=== PATIENT | female | born 1985 | race Caucasian/White ===

== ENCOUNTER 2022-09-30 10:23 | Day surgery (SDC) | payer BC ==
[2022-09-30] MEDS ORDERED: Iron Sucrose Complex 500 MG in Sodium Chloride 0.9% 250 ML 250 ML IVPB SCH (10:45)
[2022-09-30] MEDS ORDERED: Acetaminophen 500 MG TAB PO SCH (10:45)
[2022-09-30] MEDS ORDERED: Acetaminophen 500 MG TAB ONE (10:45)
== END 2022-09-30 15:25 | disposition home or self-care (01) ==
LOC: CSHSDC/OP 10:23
PROVIDERS: ATTEND Family Medicine
DX: O99.019 Anemia complicating pregnancy, unspecified trimester (principal); D64.9 Anemia, unspecified; Z3A.00 Weeks of gestation of pregnancy not specified
CPT/HCPCS: J1756; J7050

== ENCOUNTER 2022-10-24 14:33 | Day surgery (SDC) | payer BC ==
[2022-10-24 15:18] VITALS: BMI 60.3
[2022-10-24] MEDS ORDERED: hydrALAZINE 20 MG/ML VIAL SLOW IVP PRN (16:10)
[2022-10-24 17:18] LABS: ALT (SGPT) 15 U/L (8-55); AST (SGOT) 12 U/L (5-34); Albumin 3.4 g/dL (3.5-5.0); Alkaline Phosphatase 107 U/L (40-110); Anion Gap 17 mmol/L (10-20); BUN (Urea Nitrogen) 10 mg/dL (7.0-18.7); Bilirubin, Total Less than 0.2 mg/dL (0.2-1.2); Calc. Creatinine Clearance 328 mL/min (70-130); Calcium 8.8 mg/dL (7.8-10.44); Carbon Dioxide 18 mmol/L (22-29); Chloride 106 mmol/L (98-107); Estimated GFR 121; Globulin 2.9 g/dL (2.4-3.5); Glucose 107 mg/dL (70-105); Potassium 4.2 mmol/L (3.5-5.1); Protein, Total 6.3 g/dL (6.0-8.3); Sodium 137 mmol/L (136-145)
[2022-10-24] MEDS ORDERED: HumaLOG 300 UNITS/3 ML VIAL SC SCH (17:45)
[2022-10-24 17:52] LABS: #Eosinphils 0.3 10x3/uL (0.0-0.5); #Monocytes 0.6 10x3/uL (0.0-1.1); #Neutrophils 8.2 10x3/uL (1.5-8.4); %Basophils 0.3 % (0.0-2.0); %Eosinophils 2.5 % (0.0-6.0); %Lymphocytes 14.8 % (18.0-47.0); %Monocytes 5.9 % (0.0-10.0); %Neutrophils 75.3 % (40.0-75.0); Hemoglobin 10.8 g/dL (12.0-15.5); Mean Corpuscular HGB CONC 32.6 g/dL (32.0-36.0); Mean Corpuscular Hemoglobin 28.1 pg (27.0-33.0); Mean Corpuscular Volume 86.2 fl (81.6-98.3); Mean Platelet Volume 11.2 fl (7.4-10.4); Platelet Count 230 10x3/uL (150-450); RBC Distribution Width 14.6 % (11.5-14.5); Red Blood Cell (RBC) Count 3.84 10x6/uL (3.90-5.03); White Blood Cell (WBC) Count 10.8 10x3/uL (3.5-10.5)
[2022-10-24 18:01] LABS: Protein, Urine Random Quant Less than 10 mg/dL (1-14)
== END 2022-10-24 19:35 | disposition home or self-care (01) ==
LOC: CSHLD/OP 14:33
PROVIDERS: ATTEND Obstetrics & Gynecology
DX: O47.1 False labor at or after 37 completed weeks of gestation (principal); O99.891 Other specified diseases and conditions complicating pregnancy; R03.0 Elevated blood-pressure reading, without diagnosis of hypertension; O24.313 Unspecified pre-existing diabetes mellitus in pregnancy, third trimester; O99.213 Obesity complicating pregnancy, third trimester; E66.01 Morbid (severe) obesity due to excess calories; O09.513 Supervision of elderly primigravida, third trimester; O99.513 Diseases of the respiratory system complicating pregnancy, third trimester; G47.33 Obstructive sleep apnea (adult) (pediatric); O99.013 Anemia complicating pregnancy, third trimester; D50.9 Iron deficiency anemia, unspecified; O99.820 Streptococcus B carrier state complicating pregnancy; Z3A.38 38 weeks gestation of pregnancy; Z79.899 Other long term (current) drug therapy; Z79.4 Long term (current) use of insulin; Z79.82 Long term (current) use of aspirin; Z91.013 Allergy to seafood; Z91.010 Allergy to peanuts; Z91.018 Allergy to other foods
CPT/HCPCS: 36415; 80053; 82570; 84156; 85025; 96372; 99285; J1815

== ENCOUNTER 2022-10-28 05:30 | Inpatient (IN) | payer BC ==
[2022-10-28] MEDS ORDERED: Promethazine HCl 25 MG/ML VIAL IM PRN (18:46)
[2022-10-28] MEDS ORDERED: Ondansetron PF 4 MG/2 ML Vial IVP PRN (18:46)
[2022-10-28] MEDS ORDERED: hydrALAZINE 20 MG/ML VIAL SLOW IVP PRN (18:46)
[2022-10-28] MEDS ORDERED: Lidocaine 1% (PF) 30 ML VIAL SC PRN (18:46)
[2022-10-28] MEDS ORDERED: Tranexamic Acid 1,000 MG/10 ML VIAL IVP PRN (18:59)
[2022-10-28] MEDS ORDERED: Misoprostol 200 MCG TAB PR PRN (18:59)
[2022-10-28] MEDS ORDERED: Methylergonovine 0.2 MG/ML VIAL IM PRN (18:59)
[2022-10-28] MEDS ORDERED: Carboprost 250 MCG/ML AMP IM PRN (18:59)
[2022-10-28] MEDS ORDERED: Penicillin G Potassium 5 MILL.UNITS in Sodium Chloride 0.9% 100 ML IVPB SCH (19:00)
[2022-10-28] MEDS ORDERED: NS w/ Oxytocin 30 units 500 ML IV SCH ×3 (19:00)
[2022-10-28] MEDS ORDERED: Lactated Ringer's 1,000 ML IV SCH (19:00)
[2022-10-28 21:09] LABS: Hematocrit 26.8 % (34.9-44.5); Mean Corpuscular HGB CONC 33.6 g/dL (32.0-36.0); Mean Corpuscular Hemoglobin 28.2 pg (27.0-33.0); Mean Platelet Volume 11.6 fl (7.4-10.4); Platelet Count 209 10x3/uL (150-450); RBC Distribution Width 14.7 % (11.5-14.5); Red Blood Cell (RBC) Count 3.19 10x6/uL (3.90-5.03); White Blood Cell (WBC) Count 9.3 10x3/uL (3.5-10.5)
[2022-10-28] MEDS: Misoprostol 100 MCG TAB VAG SCH (21:29)
[2022-10-28 21:42] LABS: HBSAg Index 0.16 S/CO (0-0.99); Hep B Surf Ag - L&D Non-Reactive S/CO (NonReactive); Syphilis Antibody Nonreactive (Nonreactive); Syphilis Antibody Index 0.03 S/CO (<1.00 Non-Reactive)
[2022-10-28] MEDS ORDERED: HumaLOG 300 UNITS/3 ML VIAL SC PRN ×2 (22:10)
[2022-10-28] MEDS ORDERED: Glucagon 1 MG/ML KIT IM PRN (22:10)
[2022-10-28] MEDS ORDERED: Dextrose 5% in Water 1,000 ML IV PRN (22:10)
[2022-10-28] MEDS ORDERED: Dextrose 50% Abboject 50 ML SYRINGE SLOW IVP PRN (22:10)
[2022-10-28] MEDS ORDERED: Lantus 1000 UNITS/10 ML VIAL SC SCH (22:15)
[2022-10-29] MEDS: Misoprostol 100 MCG TAB VAG SCH ×2 (01:57→09:45)
[2022-10-29] MEDS ORDERED: Terbutaline Sulfate 1 MG/ML VIAL ONE (19:50)
[2022-10-29] MEDS ORDERED: Lidocaine 2% MPF 10 ML AMP (For Epidural Use) ONE (19:50)
[2022-10-29] MEDS ORDERED: Bupivacaine 0.25% HCL 30 ML VIAL ONE (19:50)
[2022-10-29] MEDS ORDERED: ePHEDrine Sulfate 50 MG/10 ML VIAL ONE (19:50)
[2022-10-29 19:58] LABS: ALT (SGPT) 15 U/L (8-55); AST (SGOT) 14 U/L (5-34); Albumin 3.3 g/dL (3.5-5.0); Alkaline Phosphatase 113 U/L (40-110); Anion Gap 16 mmol/L (10-20); BUN (Urea Nitrogen) 8 mg/dL (7.0-18.7); Bilirubin, Total 0.2 mg/dL (0.2-1.2); Calc. Creatinine Clearance 268 mL/min (70-130); Calcium 9.2 mg/dL (7.8-10.44); Carbon Dioxide 20 mmol/L (22-29); Chloride 105 mmol/L (98-107); Estimated GFR 116; Globulin 2.9 g/dL (2.4-3.5); Glucose 116 mg/dL (70-105); Protein, Total 6.2 g/dL (6.0-8.3); Sodium 137 mmol/L (136-145)
[2022-10-29 23:45] LABS: Creatinine, Urine 114.02 mg/dL (47-110); Protein, Urine Random Quant Less than 10 mg/dL (1-14)
[2022-10-30] MEDS ORDERED: diphenhydrAMINE 50 MG/ML VIAL IVP PRN ×2 (01:33→05:20)
[2022-10-30] MEDS ORDERED: Moisturizing Cream (Eucerin) 113 GM JAR TOP PRN ×2 (01:33→05:20)
[2022-10-30] MEDS ORDERED: ePHEDrine Sulfate 50 MG/10 ML VIAL SLOW IVP PRN (01:33)
[2022-10-30] MEDS ORDERED: Naloxone HCl 0.4 mg/ml Vial IVP PRN ×4 (01:33→05:20)
[2022-10-30] MEDS ORDERED: Promethazine HCl 25 MG/ML VIAL IM PRN ×3 (01:33→11:15)
[2022-10-30] MEDS ORDERED: Lactated Ringer's 500 ML IV PRN (01:33)
[2022-10-30] MEDS ORDERED: Ondansetron PF 4 MG/2 ML Vial IVP PRN ×3 (01:33→11:15)
[2022-10-30] MEDS ORDERED: fentaNYL/Ropivacaine Epidural 100 ML ONE (01:34)
[2022-10-30] MEDS ORDERED: Communication Order-Pharmacy FS SCH ×2 (01:45→05:30)
[2022-10-30] MEDS ORDERED: fentaNYL 2 mcg/Ropivacaine 0.2% Epidural 100 ML CADD EPIDURAL SCH (01:45)
[2022-10-30] MEDS: Penicillin G 2.5 MILL.units 2.5 MILL.UNITS in Premix Bag 1 BAG IVPB SCH ×5 (03:52→11:30)
[2022-10-30] MEDS ORDERED: Ampicillin 2 GM VIAL ONE (05:15)
[2022-10-30] MEDS ORDERED: Azithromycin 500 MG VIAL ONE (05:15)
[2022-10-30] MEDS ORDERED: Famotidine/PF 20 mg/2ml Vial ONE (05:15)
[2022-10-30] MEDS ORDERED: CEFAZOLIN 2 GM VIAL ONE (05:19)
[2022-10-30] MEDS ORDERED: Meperidine HCl/PF 25 MG/ML VIAL SLOW IVP PRN (05:20)
[2022-10-30] MEDS ORDERED: Naloxone HCl 0.4 mg/ml Vial IV PRN (05:20)
[2022-10-30] MEDS ORDERED: Ondansetron HCl/PF 4 MG/2 ML Vial IVP PRN (05:20)
[2022-10-30] MEDS ORDERED: Fentanyl 100 MCG/2 ML VIAL SLOW IVP PRN (05:20)
[2022-10-30] MEDS ORDERED: Promethazine HCl 25 MG SUPP PR PRN (05:20)
[2022-10-30] MEDS ORDERED: Phenylephrine 40 MG/NS 250 ML 250 ML ONE (05:29)
[2022-10-30] MEDS ORDERED: Morphine PF 10 MG/10 ML VIAL ONE (05:53)
[2022-10-30] MEDS ORDERED: Promethazine HCl 25 MG/ML VIAL ONE (06:06)
[2022-10-30] MEDS ORDERED: Oxytocin 10 UNITS/ML VIAL ONE (06:10)
[2022-10-30] MEDS ORDERED: Dexamethasone 4 mg/ml Vial ONE (06:14)
[2022-10-30] MEDS ORDERED: Ondansetron PF 4 MG/2 ML Vial ONE (06:14)
[2022-10-30] MEDS ORDERED: Ketorolac Tromethamine 30 MG/ML VIAL ONE (06:14)
[2022-10-30] MEDS ORDERED: Bisacodyl 10 MG SUPP PR PRN (11:15)
[2022-10-30] MEDS ORDERED: hydrALAZINE 20 MG/ML VIAL SLOW IVP PRN (11:15)
[2022-10-30] MEDS ORDERED: Dextrose 5% in Water 1,000 ML IV PRN (11:15)
[2022-10-30] MEDS ORDERED: Dextrose 50% Abboject 50 ML SYRINGE SLOW IVP PRN (11:15)
[2022-10-30] MEDS ORDERED: Glucagon 1 MG/ML KIT IM PRN (11:15)
[2022-10-30] MEDS ORDERED: Misoprostol 200 MCG TAB PR PRN (11:15)
[2022-10-30] MEDS ORDERED: Boostrix 0.5 ML (Tdap) VIAL (>/=7 yrs of age) IM ONE (11:15)
[2022-10-30] MEDS ORDERED: Lanolin Ointment 7 GM TUBE TOP PRN (11:15)
[2022-10-30] MEDS ORDERED: HumaLOG 300 UNITS/3 ML VIAL SC PRN ×2 (11:15)
[2022-10-30] MEDS ORDERED: diphenhydrAMINE 25 MG CAP PO PRN (11:15)
[2022-10-30] MEDS ORDERED: NS w/ Oxytocin 30 units 500 ML IV SCH (11:15)
[2022-10-30] MEDS: Misoprostol 100 MCG TAB VAG SCH ×2 (11:24→11:25)
[2022-10-30] MEDS: Simethicone Chewable 80 MG TAB PO SCH ×3 (11:26→21:11)
[2022-10-30] MEDS ORDERED: Prenatal Vitamin 1 TAB PO SCH (11:30)
[2022-10-30] MEDS ORDERED: Docusate 100 MG CAP PO SCH (11:30)
[2022-10-30] MEDS ORDERED: Ferrous Sulfate 325 MG TAB PO SCH (11:30)
[2022-10-30] MEDS: Ketorolac Tromethamine 30 MG/ML VIAL IVP SCH ×3 (11:55→23:37)
[2022-10-30] MEDS: Lantus 1000 UNITS/10 ML VIAL SC SCH (21:12)
[2022-10-30] MEDS: Ferrous Sulfate 325 MG TAB PO SCH (21:12)
[2022-10-30] MEDS: Docusate 100 MG CAP PO SCH (23:37)
[2022-10-31] MEDS: Simethicone Chewable 80 MG TAB PO SCH ×7 (00:06→23:57)
[2022-10-31 04:45] LABS: #Basophils 0.1 10x3/uL (0.0-0.2); #Eosinphils 0.2 10x3/uL (0.0-0.5); #Monocytes 0.9 10x3/uL (0.0-1.1); #Neutrophils 8.8 10x3/uL (1.5-8.4); %Basophils 0.5 % (0.0-2.0); %Eosinophils 1.2 % (0.0-6.0); %Lymphocytes 17.5 % (18.0-47.0); %Monocytes 7.2 % (0.0-10.0); %Neutrophils 72.5 % (40.0-75.0); Hematocrit 28.7 % (34.9-44.5); Hemoglobin 9.3 g/dL (12.0-15.5); Mean Corpuscular HGB CONC 32.4 g/dL (32.0-36.0); Mean Corpuscular Volume 86.4 fl (81.6-98.3); Mean Platelet Volume 10.9 fl (7.4-10.4); Platelet Count 207 10x3/uL (150-450); RBC Distribution Width 14.8 % (11.5-14.5); Red Blood Cell (RBC) Count 3.32 10x6/uL (3.90-5.03); White Blood Cell (WBC) Count 12.1 10x3/uL (3.5-10.5)
[2022-10-31] MEDS: Ketorolac Tromethamine 30 MG/ML VIAL IVP SCH (05:58)
[2022-10-31] MEDS: Docusate 100 MG CAP PO SCH ×2 (08:33→19:57)
[2022-10-31] MEDS: Prenatal Vitamin 1 TAB PO SCH (08:34)
[2022-10-31] MEDS: Ferrous Sulfate 325 MG TAB PO SCH ×2 (08:35→21:07)
[2022-10-31] MEDS: Ibuprofen 800 MG TAB PO SCH ×2 (13:58→21:04)
[2022-10-31] MEDS: Acetaminophen 325 MG TAB PO PRN ×2 (13:59→19:57)
[2022-10-31] MEDS: Lantus 1000 UNITS/10 ML VIAL SC SCH (21:04)
[2022-10-31] MEDS: HYDROcodone/Acetaminophen 5/325 mg Tablet PO PRN (23:57)
[2022-11-01] MEDS: Simethicone Chewable 80 MG TAB PO SCH ×3 (04:11→14:22)
[2022-11-01] MEDS ORDERED: hydrOXYzine 25 MG TAB PO PRN (04:28)
[2022-11-01] MEDS: Ibuprofen 800 MG TAB PO SCH ×2 (05:14→14:22)
[2022-11-01] MEDS: HYDROcodone/Acetaminophen 5/325 mg Tablet PO PRN ×2 (07:36→14:22)
[2022-11-01] MEDS: Ferrous Sulfate 325 MG TAB PO SCH (07:36)
[2022-11-01] MEDS: Docusate 100 MG CAP PO SCH (07:36)
[2022-11-01] MEDS: Prenatal Vitamin 1 TAB PO SCH (07:36)
[2022-11-01 09:09] VITALS: BP 154/74; TEMP 97.8
== END 2022-11-01 16:15 | disposition home or self-care (01) | DRG 787 ==
LOC: CSHLD 18:26 → CSHPP 10-30 09:45
PROVIDERS: ADMIT Obstetrics & Gynecology; ATTEND Obstetrics & Gynecology
PROC: 10D00Z1 Extraction of Products of Conception, Low, Open Approach (ICD-10-PCS; principal; 2022-10-30)
PROC: 3E0P7VZ Introduction of Hormone into Female Reproductive, Via Natural or Artificial Opening (ICD-10-PCS; 2022-10-30)
PROC: 3E0334Z Introduction of Serum, Toxoid and Vaccine into Peripheral Vein, Percutaneous Approach (ICD-10-PCS; 2022-10-30)
PROC: 4A033R1 Measurement of Arterial Saturation, Peripheral, Percutaneous Approach (ICD-10-PCS; 2022-10-30)
PROC: 3E033VJ Introduction of Other Hormone into Peripheral Vein, Percutaneous Approach (ICD-10-PCS; 2022-10-30)
DX: O24.424 Gestational diabetes mellitus in childbirth, insulin controlled (principal); D62 Acute posthemorrhagic anemia; Z37.0 Single live birth; O99.214 Obesity complicating childbirth; O99.02 Anemia complicating childbirth; O09.513 Supervision of elderly primigravida, third trimester; O75.89 Other specified complications of labor and delivery; G47.33 Obstructive sleep apnea (adult) (pediatric); E66.9 Obesity, unspecified; O76 Abnormality in fetal heart rate and rhythm complicating labor and delivery; O26.893 Other specified pregnancy related conditions, third trimester; Z67.31 Type AB blood, Rh negative; O99.824 Streptococcus B carrier state complicating childbirth; Z3A.38 38 weeks gestation of pregnancy; Z83.3 Family history of diabetes mellitus; Z90.89 Acquired absence of other organs; Z79.82 Long term (current) use of aspirin
CPT/HCPCS: 36415; 36416; 51702; 80053; 82570; 82805; 84156; 85025; 85027; 85461; 86780; 86850; 86900; 86901; 87340; 90384; 94760; 96372; J0456; J1100; J1650; J1815; J1885; J2274; J2405; J2540; J2550; J2590; J3105; J3490; S0020; S0028

== ENCOUNTER 2022-11-03 08:08 | Emergency (ER) | payer BC ==
[2022-11-03 09:08] LABS: #Eosinphils 0.5 10x3/uL (0.0-0.5); #Monocytes 0.5 10x3/uL (0.0-1.1); #Neutrophils 4.7 10x3/uL (1.5-8.4); %Basophils 0.5 % (0.0-2.0); %Eosinophils 6.9 % (0.0-6.0); %Monocytes 6.7 % (0.0-10.0); %Neutrophils 62.1 % (40.0-75.0); Hematocrit 27.2 % (34.9-44.5); Hemoglobin 8.9 g/dL (12.0-15.5); Mean Corpuscular HGB CONC 32.7 g/dL (32.0-36.0); Mean Corpuscular Hemoglobin 28.1 pg (27.0-33.0); Mean Corpuscular Volume 85.8 fl (81.6-98.3); Mean Platelet Volume 10.4 fl (7.4-10.4); Platelet Count 224 10x3/uL (150-450); RBC Distribution Width 14.4 % (11.5-14.5); Red Blood Cell (RBC) Count 3.17 10x6/uL (3.90-5.03); White Blood Cell (WBC) Count 7.6 10x3/uL (3.5-10.5)
[2022-11-03] MEDS ORDERED: Metoclopramide HCl 10 MG/2 ML VIAL ONE (09:10)
[2022-11-03] MEDS ORDERED: diphenhydrAMINE 50 MG/ML VIAL ONE (09:10)
[2022-11-03] MEDS ORDERED: Ketorolac Tromethamine 30 MG/ML VIAL ONE (09:10)
[2022-11-03 09:20] LABS: ALT (SGPT) 25 U/L (8-55); AST (SGOT) 24 U/L (5-34); Albumin 3.2 g/dL (3.5-5.0); Alkaline Phosphatase 86 U/L (40-110); Anion Gap 12 mmol/L (10-20); BUN (Urea Nitrogen) 9 mg/dL (7.0-18.7); Bilirubin, Total 0.2 mg/dL (0.2-1.2); Calc. Creatinine Clearance 0 mL/min (70-130); Calcium 8.4 mg/dL (7.8-10.44); Carbon Dioxide 26 mmol/L (22-29); Chloride 106 mmol/L (98-107); Estimated GFR 119; Globulin 2.4 g/dL (2.4-3.5); Glucose 101 mg/dL (70-105); Magnesium 1.7 mg/dL (1.6-2.6); Potassium 4.1 mmol/L (3.5-5.1); Protein, Total 5.6 g/dL (6.0-8.3); Sodium 140 mmol/L (136-145)
[2022-11-03 09:28] LABS: Bilirubin Neg (Negative); Blood, Urine Negative (Negative); Clarity Clear (Clear); Glucose, Urine (Dipstick) Normal (Negative); Ketone, Urine Negative (Negative); Leukocyte Negative (Negative); Nitrite Negative (Negative); Protein, Urine (Dipstick) Negative (Neg-Trace); Specific Gravity, Urine 1.005 (1.005-1.030); Urobilinogen Normal mg/dL (Less than 2)
[2022-11-03 09:35] LABS: Bacteria/HPF None Seen HPF (None Seen); CAUTI Indications for Culture Pregnancy; RBC/HPF None Seen HPF (0-3); Squamous Epithelial 0-3 HPF (0-3); WBC/HPF None Seen HPF (0-3)
[2022-11-03 09:36] LABS: Urine Culture Reflex Yes Yes
[2022-11-03] MEDS ORDERED: Caffeine/Sodium Benzoate 0.5 GM in Sodium Chloride 0.9% 1,000 ML IVPB SCH (12:30)
== END 2022-11-03 13:15 | disposition home or self-care (01) ==
LOC: CSHERS 08:08
DX: G44.221 Chronic tension-type headache, intractable (principal)
CPT/HCPCS: 80053; 81001; 83735; 85025; 87086; 96374; 96375; J0706; J1200; J1885; J2765; J7050